=== PATIENT | male | born 1965 | race Caucasian/White ===

== ENCOUNTER 2019-02-16 16:37 | Emergency (ER) | payer BC, OTHER ==
[2019-02-16] MEDS ORDERED: Diph,Pert(Acell),Tet Vac 0.5 ML SYR IM ONE (18:03)
--- NOTE | 2019-02-16 18:07 | Emergency Department Record ---
History of Present Illness - General Stated Complaint: INJURY TO FINGER ON LEFT HAND Time Seen by Provider: 02/16/19 18:03 Source: Patient Mode of Arrival: Ambulatory Limitations: No limitations - History of Present Illness Initial Comments: 54 yo male presents to ED for evaluation following an injury to the left ring finger following crush injury. Patient reports that he was working on a car when the starter came loose pinning the finger between the started and concrete floor resulting in crush injury with nail loss. Patient denies numbness, tingling symptoms. Patient denies health problems at his baseline, last tetanus was >7 years ago. MD Complaint: Injury to:: Left, Finger Onset/Timin -: Hour(s) Place: Home Worsens With: Movement of extremity Context: Crush Associated Symptoms: Denies other symptoms Treatments Prior to Arrival: Bandage - Related Data Previous Rx's Medication Instructions Recorded Clindamycin HCl 300 mg PO QID #40 capsule 02/16/19 Allergies Allergy/AdvReac Type Severity Reaction Status Date / Time correa Allergy SWELLING Verified 02/16/19 18:55 OF THE TONGUE Fish Containing Products Allergy SWELLING Verified 02/16/19 18:55 OF THE TONGUE Review of Systems Constitutional: Denies: Chills, Fever, Malaise, Night sweats Eyes: Denies: Eye discharge, Eye pain ENT: Denies: Congestion, Ear pain, Epistaxis Respiratory: Denies: Cough, Dyspnea Cardiovascular: Denies: Chest pain, Dyspnea on exertion Endocrine: Denies: Fatigue, Heat or cold intolerance Gastrointestinal: Denies: Abdominal pain, Nausea, Vomiting Genitourinary: Denies: Incontinence, Retention Musculoskeletal: Reports: Arthralgia. Denies: Back pain, Gout, Joint swelling Skin: Denies: Bruising, Change in color Neurological: Denies: Abnormal gait, Confusion, Headache Psychiatric: Denies: Anxiety Hematological/Lymphatic: Denies: Anemia, Blood Clots Physical Exam - General General Appearance: Alert, Oriented x3, Cooperative, Mild distress Limitations: No limitations - Head Head exam: Atraumatic, Normocephalic, Normal inspection Head exam detail: negative: Abrasion, Contusion, Webb's sign, General tenderness, Hematoma, Laceration - Eye Eye exam: Normal appearance. negative: Conjunctival injection, Periorbital swelling, Periorbital tenderness, Scleral icterus - ENT Ear exam: negative: Auricular hematoma, Auricular trauma Nasal Exam: negative: Active bleeding, Discharge, Dried blood, Sinus tenderness Mouth exam: negative: Drooling, Laceration, Muffled voice, Tongue elevation - Neck Neck exam: Normal inspection. negative: Meningismus, Tenderness - Respiratory Respiratory exam: Normal lung sounds bilaterally. negative: Respiratory distress, Rhonchi, Stridor, Wheezes - Cardiovascular Cardiovascular Exam: Regular rate, Normal rhythm, Normal heart sounds - GI/Abdominal GI/Abdominal exam: Soft. negative: Distended, Rebound, Rigid, Tenderness - Rectal Rectal exam: Deferred - exam: Deferred - Extremities Extremities exam: Tenderness. negative: Calf tenderness, Pedal edema, Other ( Crush injury with nail-loss to the left ring finger on examination) - Back Back exam: Denies: CVA tenderness (R), CVA tenderness (L) - Neurological Neurological exam: Alert, Normal gait, Oriented X3 - Psychiatric Psychiatric exam: Normal affect, Normal mood - Skin Skin exam: Normal color. negative: Abrasion Type of lesion: negative: abrasion Course - Reevaluation(s) Reevaluation #1: 02/16/19 19:32 Left ring finger: Comminuted fracture distal phalanx left ring finger with mild displacement Procedure Note: 5.5 cm stellate laceration to the nail bed and tuft of the left ring finger, bleeding controlled. Wound was cleaned and prepped in sterile fashion, no residual FB identified on examination. Wound was anesthetized with 3.0 mL 0.25 % Sensorcaine solution with good anesthesia, and the laceration was repaired with 4-0 Prolene (#11) sutures in interrupted fashion. Patient tolerated the procedure well without complications. Case was discussed with Dr. Peralta, will apply dressing following suture repair , initiate treatment with Clindamycin. Patient's tetanus status was updated prior to discharge as well. Disposition Disposition: Discharge Clinical Impression: Open finger fracture Qualifiers: Encounter type: initial encounter Finger: ring finger Phalanx: distal Fracture alignment: displaced Laterality: left Qualified Code(s): S62.635B - Displaced fracture of distal phalanx of left ring finger, initial encounter for open fracture Laceration of finger nail bed Qualifiers: Encounter type: initial encounter Qualified Code(s): S61.319A - Laceration without foreign body of unspecified finger with damage to nail, initial encounter Disposition: Home, Self-Care Condition: (2) Stable Instructions: Finger Fracture (ED) Additional Instructions: Return to ED if your symptoms worsen or if you have any concerns. Clindamycin as directed. Follow-up with Dr. Peralta in 1-3 days, call for appointment in the morning. Prescriptions: Clindamycin HCl 300 mg PO QID #40 capsule Referrals: VAMSHI PERALTA M.D. [MEDICAL DOCTOR] - Forms: Patient Portal Access Time of Disposition: 19:36 Quality - Quality Measures Quality Measures: N/A - Blood Pressure Screening Does Patient Have Any of the Following: No Blood Pressure Classification: Pre-Hypertensive BP Reading Systolic Measurement: 119 Diastolic Measurement: 80 Screening for High Blood Pressure: < Pre-Hypertensive BP, F/U Documented > [ [id number]] Pre-Hypertensive Follow-up Interventions: Referral to alternative/primary care provider.
[2019-02-16] MEDS ORDERED: CLINDAMYCIN 150 MG CAP PO ONE (19:40)
--- NOTE | 2019-02-17 13:43 | RADIOLOGY REPORT ---
EXAM: LEFT RING FINGER HISTORY: TRAUMA INVOLVING THE DISTAL LEFT RING FINGER. TECHNIQUE: Three views of the left ring finger were obtained. Comparison: None. FINDINGS: Irregular soft tissue injury of the ring finger tip. Underlying acute comminuted fracture of the ring finger distal phalanx tuft with displacement of fragments in the volar direction. Irregular metallic radiodensity projects near the volar and ulnar aspect of the finger tip, appears to most likely be external to the patient. No additional fracture is seen. No dislocation. 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 IMPRESSION: 1. ACUTE COMMINUTED DISPLACED FRACTURE OF THE RING FINGER DISTAL PHALANX TUFT WITH SURROUNDING SOFT TISSUE INJURY. 2. METALLIC RADIODENSITY PROJECTING NEAR THE SUPERFICIAL SOFT TISSUES OF THE RING FINGER TIP, POSSIBLY EXTERNAL TO THE PATIENT. JOB NUMBER: [id number] MTDD
== END 2019-02-16 20:00 | disposition home or self-care (01) ==
LOC: ER 16:37
DX: S61.315A Laceration without foreign body of left ring finger with damage to nail, initial encounter (principal); S62.635A Displaced fracture of distal phalanx of left ring finger, initial encounter for closed fracture; W31.89XA Contact with other specified machinery, initial encounter; Y92.009 Unspecified place in unspecified non-institutional (private) residence as the place of occurrence of the external cause
CPT/HCPCS: 11760; 12002; 73140; 90715; 96372; 99283; 99284